=== PATIENT | male | born 1970 | race Caucasian/White ===

== ENCOUNTER 2017-11-02 00:13 | Emergency (ER) | payer BC ==
[2017-11-02] MEDS ORDERED: ONDANSETRON HCL IV 4 MG/2 ML VIAL IVP ONE (00:31)
--- NOTE | 2017-11-02 00:36 | Emergency Department Record ---
History of Present Illness - General Chief Complaint: Dizziness Stated Complaint: NAUSEOUS Time Seen by Provider: 11/02/17 00:23 Source: Patient Mode of Arrival: Ambulatory Limitations: No limitations - History of Present Illness Initial Comments: 47 yo male presents to ED for evaluation of feeling as though he is going to pass out while driving. Patient reports symptoms intermittently for the past 1 week, denies any activity that improves or worsens his symptoms. Patient also reports nausea/vomiting x 1 tonight, denies abdominal pain, fever, chills, or focal weakness symptoms. Patient denies headache symptoms or neck stiffness symptoms. Patient denies health problems other than hyperthyroid. MD Complaint: Dizziness Onset/Timin -: Week(s) Timing: Sudden onset Description: Lightheadedness, Nausea, Off-balance History of Same: Yes History of Trauma: No Severity: Moderate Improves With: Nothing Worsens With: Movement, Exertion Associated Symptoms: Denies other symptoms - [place] Coma Scale Eye Response: (4) Open spontaneously Motor Response: (6) Obeys commands Verbal Response: (5) Oriented [place] Total: 15 - Related Data Home Medications Medication Instructions Recorded Confirmed Last Taken Calcium Carbonate [Calcium] 600 mg PO BID 11/02/17 11/02/17 Unknown Ergocalciferol (Vitamin D2) 50,000 unit PO ASDIR 11/02/17 11/02/17 Unknown [Vitamin D2] Allergies Allergy/AdvReac Type Severity Reaction Status Date / Time No Known Drug Allergies Allergy Verified 04/14/14 10:14 Travel Screening - Travel/Exposure Within Last 30 Days Have you traveled within the last 30 days?: No - Travel Symptoms Symptom Screening: None Review of Systems Constitutional: Denies: Chills, Fever, Malaise, Night sweats Eyes: Denies: Eye discharge, Eye pain ENT: Denies: Congestion, Ear pain, Epistaxis Respiratory: Denies: Cough, Dyspnea Cardiovascular: Denies: Chest pain, Dyspnea on exertion Endocrine: Denies: Fatigue, Heat or cold intolerance Gastrointestinal: Reports: Nausea, Vomiting. Denies: Abdominal pain Genitourinary: Denies: Incontinence, Retention Musculoskeletal: Denies: Arthralgia, Back pain, Gout, Joint swelling Skin: Denies: Bruising, Change in color Neurological: Reports: Vertigo. Denies: Abnormal gait, Confusion, Headache, Numbness, Seizure Psychiatric: Denies: Anxiety Hematological/Lymphatic: Denies: Anemia, Blood Clots Past Medical History - SOCIAL HISTORY Smoking Status: Former smoker Alcohol Use: Rare Drug Use: None - RESPIRATORY Hx Respiratory Disorders: No - CARDIOVASCULAR Hx Cardio Disorders: No - NEURO Hx Neuro Disorders: No - GI Hx GI Disorders: No - Hx Genitourinary Disorders: No - ENDOCRINE Hx Endocrine Disorders: Yes Hx Thyroid Disease: Yes (hyperthyroidism) Comment:: treated for hyper with radiation, now has hypothyroidism - MUSCULOSKELETAL Hx Musculoskeletal Disorders: No - PSYCH Hx Psych Problems: No - HEMATOLOGY/ONCOLOGY Hx Hematology/Oncology Disorders: No Family Medical History Any Significant Family History?: No Family Hx Comment (NOT TO BE USED IN PLACE OF ITEMS BELOW): denies Physical Exam - General General Appearance: Alert, Oriented x3, Cooperative, No acute distress, Other ( Stands for examination without difficulty) Limitations: No limitations - Head Head exam: Atraumatic, Normocephalic, Normal inspection Head exam detail: negative: Abrasion, Contusion, Sung's sign, General tenderness, Hematoma, Laceration - Eye Eye exam: Normal appearance. negative: Conjunctival injection, Periorbital swelling, Periorbital tenderness, Scleral icterus - ENT Ear exam: negative: Auricular hematoma, Auricular trauma Nasal Exam: negative: Active bleeding, Discharge, Dried blood, Foreign body Mouth exam: negative: Drooling, Laceration, Muffled voice, Tongue elevation - Neck Neck exam: Normal inspection. negative: Meningismus, Tenderness - Respiratory Respiratory exam: Normal lung sounds bilaterally. negative: Rales, Respiratory distress, Rhonchi, Stridor - Cardiovascular Cardiovascular Exam: Regular rate, Normal rhythm, Normal heart sounds - GI/Abdominal GI/Abdominal exam: Soft. negative: Rebound, Rigid, Tenderness - Rectal Rectal exam: Deferred - exam: Deferred - Extremities Extremities exam: Normal inspection. negative: Pedal edema, Tenderness - Back Back exam: Denies: CVA tenderness (R), CVA tenderness (L) - Neurological Neurological exam: Alert, CN II-XII intact, Normal gait, Oriented X3. negative : Motor sensory deficit - Psychiatric Psychiatric exam: Normal affect, Normal mood - Skin Skin exam: Normal color. negative: Abrasion Type of lesion: negative: abrasion Course Vital Signs 11/02/17 00:23 Temperature 98.4 F Pulse Rate [ 67 Pulse Ox Probe] Respiratory 18 Rate Blood Pressure 155/98 [Left Arm] Pulse Ox 97 - Reevaluation(s) Reevaluation #1: 11/02/17 00:40 EKG: NSR 52 Normal axis, nonspecific IVCD No acute ST-T wave changes Reevaluation #2: 11/02/17 01:07 Labs reviewed and are grossly unremarkable for an acute process. Patient reports that his symptoms are improved, reviewed all results, and he appears stable for discharge with instructions to follow-up with his PCP in 3-5 days as directed. Patient declined Zofran for at home. All questions were answered prior to discharge. Medical Decision Making - Lab Data Result diagrams: 11/02/17 00:36 11/02/17 00:36 Disposition Disposition: Discharge Clinical Impression: Lightheadedness Disposition: Home, Self-Care Condition: (2) Stable Instructions: Lightheadedness (ED) Additional Instructions: Return to ED if your symptoms worsen or if you have any concerns. Follow-up with your family doctor in 3-5 days as directed. Forms: Patient Portal Access Time of Disposition: 01:18 Quality - Quality Measures Quality Measures: N/A - Blood Pressure Screening Does Patient Have Any of the Following: No Blood Pressure Classification: Hypertensive Reading Systolic Measurement: 155 Diastolic Measurement: 98 Screening for High Blood Pressure: < First Hypertensive BP, F/U Documented > [ [id number]] First Hypertensive Follow-up Interventions: Referral to alternative/primary care provider.
[2017-11-02 00:45] LABS: BASO % 0.5 % (0-6); EOS % 0.6 % (0-6); GRAN % 71.1 % (47-80); HEMATOCRIT 39.3 % (42.0-52.0); HEMOGLOBIN 13.5 gm/dl (14.0-18.0); LYMPH % 22.9 % (16-45); MEAN CELL VOLUME 87.9 fl (81-97); MEAN CORPUSCULAR HEMOGLOBIN 30.2 pg (27-33); MEAN CORPUSCULAR HGB CONC 34.4 g/dl (32-36); MEAN PLATELET VOLUME 9.8 fl (7.4-10.4); MONO % 4.9 % (0-9); PLATELET COUNT 194 K/uL (130-400); RED BLOOD COUNT 4.47 M/uL (4.40-5.70); WHITE BLOOD COUNT W/O DIFF 6.3 K/uL (4.2-12.2)
[2017-11-02] MEDS ORDERED: 0.9 % SODIUM CHLORIDE 1000ML 1,000 ML IV SCH (00:45)
[2017-11-02 00:55] LABS: BLOOD UREA NITROGEN 16 mg/dL (6-20); CREATININE 1.3 mg/dL (0.7-1.2); EST GLOMERULAR FILTRATION RATE > 60 mL/min
[2017-11-02 00:58] LABS: GLUCOSE,RANDOM 103 mg/dL (74-109)
[2017-11-02 01:00] LABS: ALT/SGPT 25 U/L (<41)
[2017-11-02 01:01] LABS: ALB/GLOB RATIO 1.7 (1.1-1.8); ALBUMIN 4.4 g/dL (4.0-5.0); ALKALINE PHOSPHATASE 119 U/L (40-129); AST/SGOT 19 U/L (10.0-50.0)
== END 2017-11-02 01:28 | disposition home or self-care (01) ==
LOC: ER 00:13
DX: R42 Dizziness and giddiness (principal); R11.2 Nausea with vomiting, unspecified
CPT/HCPCS: 80053; 84443; 85025; 93005; 93010; 96374; 99284; J2405; J7030